=== PATIENT | female | born 1945 | race Caucasian/White ===

== ENCOUNTER → 2022-08-17 | Outpatient (REF) | payer MEDICARE, OTHER ==
[~2022-08-17] MED LIST: ACET65TA; ALPR0.5T3; COLA100C2; MILKSUS
== END ==
LOC: M SFHCDERM 14:16
PROVIDERS: ATTEND Physician Assistant
DX: L72.3 Sebaceous cyst (principal); L57.8 Other skin changes due to chronic exposure to nonionizing radiation; L57.0 Actinic keratosis